=== PATIENT | female | born 1975 | race Caucasian/White ===

== ENCOUNTER 2017-09-08 23:03 | Emergency (ER) | payer MEDICARE ==
[2017-09-08] MEDS ORDERED: Albuterol/Ipratropium 3.0-0.5 MG/3 ML Neb Soln NEB ONE (23:25)
[2017-09-08] MEDS ORDERED: Ketorolac 60 MG/2 ML SDV IM ONE (23:26)
[2017-09-08] MEDS ORDERED: predniSONE 20 MG Tab PO ONE (23:31)
[2017-09-08] MEDS ORDERED: Codeine/guaiFENesin 100mg-10 MG/5 ML Soln 118 ML Bottle PO ONE (23:33)
--- NOTE | 2017-09-09 00:13 | ER ---
DATE SEEN: 09/08/2017 CHIEF COMPLAINT: A cough. HISTORY OF PRESENT ILLNESS: This is a 41-year-old female from [place], who complains of a cough for 4 days. The cough is paroxysmal, persistent, constant, and productive of yellow sputum, associated with a headache. SOCIAL HISTORY: Smoker. ALLERGIES: Updated. MEDICATIONS: See the electronic record. PHYSICAL EXAMINATION: GENERAL: She is constantly coughing, but she is afebrile and has 100% of oxygenation while breathing on room air. She is normotensive. ENT: Negative. NECK: Normal. No thyromegaly. CHEST: Has clear breath sounds with the exception of some upper airway transmitted sounds. EXTREMITIES: No edema. CARDIOVASCULAR: Mild tachycardia. IMPRESSION: 1. Acute bronchitis. 2. Headache. 3. Tobacco abuse. TREATMENT: DuoNeb x1 and ketorolac 60 mg IM x1. I sent her home on Robitussin with Codeine 10 mL every 6 hours and prednisone 10 mg b.i.d. She should see her doctor within 2 days. /[id number] KATE/KRYSTIN
== END 2017-09-09 00:07 | disposition home or self-care (01) ==
LOC: FB.ED 23:03
DX: J20.9 Acute bronchitis, unspecified (principal); R51 Headache; F17.200 Nicotine dependence, unspecified, uncomplicated
CPT/HCPCS: 94640; 96372; 99283; A9270; J1885; J7620